=== PATIENT | female | born 1945 | race Caucasian/White ===

== ENCOUNTER 2017-07-31 13:20 | Outpatient (CLI) | END 2017-07-31 13:21 | disposition home or self-care (01) | LOC: LAB 13:20 | PROVIDERS: ATTEND Nurse Practitioner Family | DX: R73.09 Other abnormal glucose (principal) | CPT/HCPCS: 36415; 83036 ==

== ENCOUNTER 2017-11-11 10:15 | Outpatient (CLI) | payer OTHER | END 2017-11-11 10:16 | disposition home or self-care (01) | LOC: FCC-LAB 10:15 | PROVIDERS: ATTEND Nurse Practitioner Family | DX: E11.9 Type 2 diabetes mellitus without complications (principal); E78.00 Pure hypercholesterolemia, unspecified; F41.9 Anxiety disorder, unspecified | CPT/HCPCS: 36415; 80053; 80061; 83036; 85025 ==

== ENCOUNTER 2018-03-09 11:04 | Outpatient (CLI) | payer OTHER | END 2018-03-09 11:05 | disposition home or self-care (01) | LOC: FCC-LAB 11:04 | PROVIDERS: ATTEND Nurse Practitioner Family | DX: F41.9 Anxiety disorder, unspecified (principal); K21.9 Gastro-esophageal reflux disease without esophagitis; E78.00 Pure hypercholesterolemia, unspecified; Z79.899 Other long term (current) drug therapy | CPT/HCPCS: 36415; 80053; 80061; 81001; 85025 ==

== ENCOUNTER 2018-03-12 12:23 | Outpatient (CLI) | END 2018-03-12 12:24 | disposition home or self-care (01) | LOC: FCC-LAB 12:23 | PROVIDERS: ATTEND Nurse Practitioner Family | DX: E11.9 Type 2 diabetes mellitus without complications (principal) | CPT/HCPCS: 36415; 83037 ==

== ENCOUNTER 2018-06-08 11:44 | Outpatient (CLI) | END 2018-06-08 11:45 | disposition home or self-care (01) | LOC: FCC-LAB 11:44 | PROVIDERS: ATTEND Family Medicine | DX: E11.9 Type 2 diabetes mellitus without complications (principal); R03.0 Elevated blood-pressure reading, without diagnosis of hypertension; E78.00 Pure hypercholesterolemia, unspecified | CPT/HCPCS: 36415; 80053; 85025 ==

== ENCOUNTER 2019-02-21 10:46 | Emergency (ER) | payer OTHER ==
[2019-02-21 10:58] VITALS: BP 147/98; TEMP 97.2; BMI 27.3
--- NOTE | 2019-02-21 11:04 | ED.PDOC ---
General ED Provider: Dr. VALERIO TUCKER-ER Chief Complaint: Rash Stated Complaint: i was pulling on some sarah and now i haVe this rash "all over " Time Seen by Physician: 11:03 Mode of Arrival: Walk-In Information Source: Patient Exam Limitations: No limitations Primary Care Provider: MATHIEU CROWE Nursing and Triage Documentation Reviewed and Agree: Yes Does patient meet sepsis criteria?: No System Inflammatory Response Syndrome: Not Applicable Sepsis Protocol: For patient's 13 years and over: Temp is 96.8 and below OR 101 and greater Pulse >90 BPM Resp >20/minute Acutely Altered Mental Status Are patient's symptoms suggestive of a new infection, such as: -Pneumonia -Skin, Soft Tissue -Endocarditis -UTI -Bone, Joint Infection -Implantable Device -Acute Abdominal Infection -Wound Infection -Meningitis -Blood Stream Catheter Infection -Unknown Skin Complaint Exam - Skin Rash/Itching Complaint/Exam Onset/Duration: 2 days Symptoms Are: Still present Initial Severity: Mild Current Severity: Moderate Location: face, arms and legs Potential Exposures: Reports: Plants Aggravating: Reports: None Alleviating: Reports: None Associated Signs and Symptoms: Denies: Difficulty breathing, Fever, Chills Skin Findings: Present: Target lesions, Maculae, Dry scaly skin Differential Diagnoses: Contact Dermatitis, Poison Rach[place] Review of Systems - Review Of Systems Constitutional: Reports: No symptoms Eyes: Reports: No symptoms Ears, Nose, Mouth, Throat: Reports: No symptoms Respiratory: Reports: No symptoms Cardiac: Reports: No symptoms GI: Reports: No symptoms : Reports: No symptoms Musculoskeletal: Reports: No symptoms Skin: Reports: Rash Neurological: Reports: No symptoms Endocrine: Reports: No symptoms Hematologic/Lymphatic: Reports: No symptoms All Other Systems: Reviewed and Negative Past Medical History - Past Medical History Previously Healthy: No Endocrine: Reports: DM 2 Cardiovascular: Reports: Unknown Respiratory: Reports: Unknown Hematological: Reports: Unknown Gastrointestinal: Reports: Unknown Genitourinary: Reports: Unknown Neuro/Psych: Reports: Unknown Musculoskeletal: Reports: Unknown Cancer: Reports: Unknown Last Menstrual Period: none - Surgical History General Surgical History: Reports: Unknown - Family History Family History: Reports: Unknown - Social History Smoking Status: Former smoker - Immunizations Tetanus Shot up to Date: Yes Physical Exam - Physical Exam Appearance: Well-appearing, No pain distress, Well-nourished Eyes: NAUN, EOMI, Conjunctiva clear ENT: Ears normal, Nose normal, Oropharynx normal Neck: Supple Respiratory: Airway patent, Breath sounds clear, Breath sounds equal, Respirations nonlabored Cardiovascular: RRR, Pulses normal, No rub, No murmur GI/: Soft, Nontender, No masses, Bowel sounds normal, No Organomegaly Musculoskeletal: Normal strength, ROM intact, No edema, No calf tenderness Skin: Warm, Dry, Normal color Neurological: Sensation intact Psychiatric: Affect appropriate, Mood appropriate, Anxious Critical Care Note - Critical Care Note Total Time (mins): 0 Course - Course Orders, Labs, Meds: Orders Category Date Time Status Dexamethasone 4 mg/ml Inj [Decadron 4 mg/ml Sdv] MEDS 02/21/19 11:02 Stat 4 mg IM ONCE STA Vital Signs: Temp Pulse Resp BP Pulse Ox 02/21/19 10:46 97.2 F L 76 16 147/98 H 95 Departure - Departure Time of Disposition: 11:05 Disposition: HOME SELF-CARE Discharge Problem: Pruritic rash Instructions: Poison Rachana (ED) Condition: Good Pt referred to PMD for follow-up: Yes IPMP verified?: No Additional Instructions: monitor bs while taking steroids---prednisone 20mg x 3 days then 10mg x 3 days then 5mg x 3 days--lidex cream apply to rash tid and cover with sarna lotion-- do not apply lidex to the face---f/u with pcp in 2-3 days if not improving Allergies/Adverse Reactions: Allergies No Known Allergies Allergy (Unverified 07/08/17 10:21) Home Medications: Ambulatory Orders Acetaminophen 325 mg PO 07/08/17 Aspirin [Aspirin Ec] 81 mg PO DAILY 07/08/17 Loratadine 10 mg PO DAILY 08/25/18 Disposition Discussed With: Patient
[2019-02-21] MEDS: DECADRON 4 MG/ML SDV IM STA (11:12)
== END 2019-02-21 11:40 | disposition home or self-care (01) ==
LOC: ED 10:46
DX: R21 Rash and other nonspecific skin eruption (principal); L29.9 Pruritus, unspecified; E11.9 Type 2 diabetes mellitus without complications
CPT/HCPCS: 96372; 99282

== ENCOUNTER 2019-03-01 08:31 | Outpatient (CLI) | END 2019-03-01 08:32 | disposition home or self-care (01) | LOC: RHC-LAB 08:31 → FCC-LAB 08:32 | PROVIDERS: ATTEND Family Medicine | DX: D72.819 Decreased white blood cell count, unspecified (principal); E78.5 Hyperlipidemia, unspecified; F41.9 Anxiety disorder, unspecified | CPT/HCPCS: 36415; 80053; 80061; 84443; 85025 ==

== ENCOUNTER 2019-03-04 12:19 | Outpatient (CLI) | END 2019-03-04 12:20 | disposition home or self-care (01) | LOC: RHC-LAB 12:19 → FCC-LAB 12:20 | PROVIDERS: ATTEND Family Medicine | DX: E11.9 Type 2 diabetes mellitus without complications (principal) | CPT/HCPCS: 36415; 83037 ==